=== PATIENT | female | born 1955 | race African-American/Black ===

== ENCOUNTER → 2018-01-19 | Outpatient (CLI) | payer OTHER ==
[2014-12-02 18:47] VITALS: BP 160/96
--- NOTE | 2018-01-19 14:40 | RAD ---
DATE: 01/19/2018 EXAM: DIGITAL SCREEN BILAT W/CAD HISTORY: Routine screening COMPARISON: Baseline study This study was interpreted with the benefit of Computerized Aided Detection (CAD). The breast parenchyma is heterogeneously dense, which could reduce sensitivity of mammography. Breast parenchyma level C. FINDINGS: There are benign-appearing lymph node type densities projected over the axillary tail regions. No spiculated mass or architectural distortion is seen. No suspicious microcalcifications are evident. IMPRESSION: There is no mammographic evidence of malignancy in either breast. BI-RADS CATEGORY: 2 BENIGN FINDING(S) RECOMMENDED FOLLOW-UP: 12M 12 MONTH FOLLOW-UP PQRS compliance statement: Patient information was entered into a reminder system with a target due date for the next mammogram. Mammography is a sensitive method for finding small breast cancers, but it does not detect them all and is not a substitute for careful clinical examination. A negative mammogram does not negate a clinically suspicious finding and should not result in delay in biopsying a clinically suspicious abnormality. "Our facility is accredited by the [employer] Mammography [employer]."
== END | disposition home or self-care (01) ==
LOC: MAMMO 13:21
PROVIDERS: ATTEND Family Medicine
DX: R92.2 Inconclusive mammogram (principal); Z88.8 Allergy status to other drugs, medicaments and biological substances
CPT/HCPCS: 77067

== ENCOUNTER → 2021-01-17 | Outpatient (CLI) | payer MEDICAID ==
[2020-08-23 15:00] VITALS: BP 146/66
[~2021-01-17] MED LIST: INSU100V35 SQ; INSU100V8 SQ
--- NOTE | 2021-01-17 16:18 | RAD ---
INDICATION: 65 years of age asymptomatic female patient presents for screening mammography. TECHNIQUE: Bilateral full field craniocaudal and mediolateral oblique images were obtained using dig ital technique and also analyzed with computer-aided detection software. COMPARISON: 01/19/2018. BREAST COMPOSITION: Category C: The breast tissue is heterogeneously dense, which could obscure detec tion of small masses. FINDINGS: Benign calcifications are present. The parenchymal pattern appears stable. No suspicious masses, microcalcifications or architectural distortion is present to suggest malignanc y in either breast. The visualized axillae are unremarkable. IMPRESSION: No mammographic evidence of malignancy. RECOMMENDATION: Annual screening mammography is recommended, unless clinically indicated sooner based on symptoms or change in physical exam. BIRADS 2: BENIGN This study was interpreted with the benefit of Computerized Aided Detection (CAD). ?Your patient's mammogram demonstrates that she has dense breast tissue (breast density category C or D), which could hide abnormalities, and if she has other risk factors for breast cancer that have be en identified, she might benefit from supplemental screening tests that may be suggested by you as he r ordering physician. Dense breast tissue, in and of itself, is a relatively common condition. Theref ore, this information is not provided to cause undue concern, but rather to raise your awareness and to promote discussion with your patient regarding the presence of other risk factors, in addition to dense breast tissue. Your patient's mammography results will be sent to her. Patient information is entered into the reminder system with a target due date for the next screening mammogram. Mammography is the most sensitive method for finding small breast cancers, but it does not detect the m all and is not a substitute for careful clinical examination. A negative mammogram does not negate a clinically suspicious finding and should not result in delay in biopsying a clinically suspicious a bnormality. "Our facility is accredited by the [employer] Mammography [employer]." Electronically signed by: Petros Trinidad MD (01/17/2021 4:16 PM) [id number]
== END ==
LOC: MAMMO 13:52
PROVIDERS: ATTEND Family Medicine
DX: Z12.31 Encounter for screening mammogram for malignant neoplasm of breast (principal)
CPT/HCPCS: 77067